=== PATIENT | female | born 1965 | race Caucasian/White ===

== ENCOUNTER 2018-04-10 13:55 | Inpatient (IN) | payer MEDICAID, OTHER ==
[~2018-04-10] VITALS: Ht 157.5 cm; Wt 135.4 kg
[~2018-04-10 13:55] MED LIST: ASPI-825 PO; BENA10TA12 PO; CANA100T PO; DULO60CA44 PO; GLIP10TA9 PO; INSLAN SQ; LOSA50TA64 PO; METF1000 PO; MULT-1239 PO; NYST30CR9 TP; OLAN10TA22 PO
[2018-04-10 16:16] LABS: RED BLOOD CELL COUNT(AUTO) 5.24 MIL/uL (4.00-5.20)
[2018-04-10 16:17] LABS: BASOPHILS % (AUTO) 0.3 % (0.0-2.0); EOSINOPHILS % (AUTO) 2.2 % (1.0-6.0); HEMATOCRIT 42.9 % (36-46); HEMOGLOBIN 14.3 g/dL (12.0-16.0); LYMPHOCYTES # (AUTO) 3.4 K/uL (1.0-4.8); LYMPHOCYTES % (AUTO) 36.7 % (22.0-44.0); MEAN CORPUSCULAR HEMOGLOBIN 27.3 pg (26.0-34.0); MEAN CORPUSCULAR HGB CONC 33.3 G/dL (31.0-37.0); MEAN CORPUSCULAR VOLUME 82 fL (80-100); MONOCYTES # (AUTO) 0.7 K/uL (0.1-1.0); MONOCYTES % (AUTO) 7.2 % (2.0-9.0); NEUTROPHILS # (AUTO) 4.9 K/uL (1.8-7.7); NEUTROPHILS % (AUTO) 53.6 % (40.0-70.0); PLATELET COUNT (AUTO) 280 K/uL (150-450); RED CELL DISTRIBUTION WIDTH 13.8 % (11.5-14.5)
[2018-04-10 16:26] LABS: ANION GAP 10 mmol/L (8-16); CALCIUM, TOTAL 9.3 mg/dL (8.8-10.5); CARBON DIOXIDE 26 mmol/L (22-29); CHLORIDE 104 mmol/L (98-107); CREATININE 0.86 mg/dL (0.60-1.30); GLOMERULAR FILTR. RATE CALC > 60 mL/min (>60); GLUCOSE,RANDOM 146 mg/dL (70-110); POTASSIUM 4.2 mmol/L (3.5-5.1); SODIUM SERUM 140 mmol/L (136-145); UREA NITROGEN, BLOOD 15 mg/dL (7-18)
[2018-04-10 16:40] LABS: ALANINE AMINOTRANSFERASE 25 U/L (12-78); ALBUMIN 3.3 g/dL (3.4-5.0); ALKALINE PHOSPHATASE 81 U/L (46-116); ASPARTATE AMINOTRANSFERASE 15 U/L (15-37); BILIRUBIN,TOTAL 0.3 mg/dL (0.1-1.0); THYROID STIMULATING HORMONE 1.63 uIU/mL (0.36-3.74); TOTAL PROTEIN, SERUM 7.3 g/dL (6.4-8.2)
[2018-04-10 17:02] LABS: APPEARANCE,URINE CLEAR (CLEAR); BILIRUBIN,URINE NEGATIVE (NEGATIVE); GLUCOSE, URINE (UA) >=1000 mg/dL (NEGATIVE); KETONES,URINE NEGATIVE (NEGATIVE); LEUKOCYTE ESTERASE ,URINE NEGATIVE (NEGATIVE); NITRATE,URINE NEGATIVE (NEGATIVE); OCCULT BLOOD,URINE NEGATIVE (NEGATIVE); PROTEIN,URINE NEGATIVE (NEGATIVE); UROBILINOGEN,URINE 0.2 mg/dL (<=1.0)
[2018-04-10 17:06] LABS: AMPHET/METH SCREEN,URINE NEGATIVE (NEGATIVE); BARBITURATE SCREEN, URINE NEGATIVE (NEGATIVE); BENZODIAZEPINES SCREEN,URINE NEGATIVE (NEGATIVE); CANNABINOID SCREEN,URINE NEGATIVE (NEGATIVE); COCAINE SCREEN,URINE NEGATIVE (NEGATIVE); METHADONE SCREEN, URINE NEGATIVE (NEGATIVE); OPIATE SCREEN,URINE NEGATIVE (NEGATIVE); PHENCYCLIDINE SCREEN,URINE NEGATIVE (NEGATIVE)
[2018-04-10 17:16] LABS: BACTERIA,URINE None Seen /HPF (None Seen); RBC,URINE None Seen /HPF (0-2); SQUAMOUS EPITHELIAL CELL,UR Few /LPF (None Seen); WBC,URINE None Seen /HPF (0-5)
[2018-04-10] MEDS ORDERED: MAG HYDROX/AL HYDROX/SIMETH ES 30 ML SUSPENSION UDCUP PO PRN (18:45)
[2018-04-10] MEDS ORDERED: PROMETHAZINE HCL 25 MG TABLET PO PRN (18:45)
[2018-04-10] MEDS ORDERED: HydrOXYzine PAMOATE 50 MG CAPSULE PO PRN (18:45)
[2018-04-10] MEDS ORDERED: MAGNESIUM HYDROXIDE SUSPENSION 30 ML UDCUP PO PRN (18:45)
[2018-04-10] MEDS ORDERED: ZOLPIDEM TARTRATE 10 MG TABLET PO PRN (18:45)
[2018-04-10] MEDS ORDERED: LOPERAMIDE HCL 2 MG CAPSULE PO PRN (18:45)
[2018-04-10] MEDS ORDERED: GuaiFENesin/D-METHORPHAN [SUGAR-FREE] 200-20MG/10 ML SYRUP UDCUP PO PRN (18:45)
[2018-04-10] MEDS: OLANZapine 5 MG RAPDIS TABLET PO SCH (20:16)
[2018-04-10] MEDS: THIAMINE HCL 100 MG TABLET PO SCH (20:16)
[2018-04-10] MEDS: ACETAMINOPHEN 325 MG TABLET PO PRN (21:24)
[2018-04-11 01:33] VITALS: BP 131/68
[2018-04-11 02:15] VITALS: BP 121/60
[2018-04-11 04:33] LABS: BASOPHILS % (AUTO) 0.4 % (0.0-2.0); EOSINOPHILS % (AUTO) 2.5 % (1.0-6.0); HEMATOCRIT 41.3 % (36-46); HEMOGLOBIN 13.5 g/dL (12.0-16.0); LYMPHOCYTES # (AUTO) 3.4 K/uL (1.0-4.8); LYMPHOCYTES % (AUTO) 41.1 % (22.0-44.0); MEAN CORPUSCULAR HEMOGLOBIN 27.2 pg (26.0-34.0); MEAN CORPUSCULAR HGB CONC 32.6 G/dL (31.0-37.0); MEAN CORPUSCULAR VOLUME 83 fL (80-100); MONOCYTES # (AUTO) 0.8 K/uL (0.1-1.0); MONOCYTES % (AUTO) 9.9 % (2.0-9.0); NEUTROPHILS # (AUTO) 3.9 K/uL (1.8-7.7); NEUTROPHILS % (AUTO) 46.1 % (40.0-70.0); PLATELET COUNT (AUTO) 245 K/uL (150-450); RED BLOOD CELL COUNT(AUTO) 4.95 MIL/uL (4.00-5.20); RED CELL DISTRIBUTION WIDTH 13.4 % (11.5-14.5)
[2018-04-11 04:42] LABS: HEMOGLOBIN A1C 8.1 % (4.5-6.2)
[2018-04-11 05:05] LABS: ALANINE AMINOTRANSFERASE 24 U/L (12-78); ALKALINE PHOSPHATASE 75 U/L (46-116); ANION GAP 6 mmol/L (8-16); ASPARTATE AMINOTRANSFERASE 16 U/L (15-37); BILIRUBIN,TOTAL 0.3 mg/dL (0.1-1.0); CALCIUM, TOTAL 8.9 mg/dL (8.8-10.5); CARBON DIOXIDE 29 mmol/L (22-29); CHLORIDE 106 mmol/L (98-107); CHOL/HDL RATIO 3.2 (3.9-5.7); CHOLESTEROL 135 mg/dL (131-200); CREATININE 0.85 mg/dL (0.60-1.30); GLOMERULAR FILTR. RATE CALC > 60 mL/min (>60); GLUCOSE,RANDOM 136 mg/dL (70-110); HDL CHOLESTEROL 42 mg/dL (40-60); LDL CHOL (CALC.) 55 mg/dL (0-130); POTASSIUM 3.8 mmol/L (3.5-5.1); SODIUM SERUM 141 mmol/L (136-145); TOTAL PROTEIN, SERUM 6.6 g/dL (6.4-8.2); TRIGLYCERIDES 190 mg/dL (15-150); UREA NITROGEN, BLOOD 17 mg/dL (7-18)
[2018-04-11 07:56] VITALS: BP 132/60
[2018-04-11] MEDS: FOLIC ACID 1 MG TABLET PO SCH (08:36)
[2018-04-11] MEDS: DULoxetine HCL 60 MG CAPSULE PO SCH (08:36)
[2018-04-11] MEDS: MetFORMIN HCL 500 MG TABLET PO SCH ×2 (08:36→17:41)
[2018-04-11] MEDS: THIAMINE HCL 100 MG TABLET PO SCH ×2 (08:37→21:21)
[2018-04-11] MEDS: MULTIVITAMINS WITH MINERALS, THERAPEUTIC TABLET PO SCH (08:37)
[2018-04-11 09:22] VITALS: BP 132/60
[2018-04-11 14:00] LABS: GLUCOSE,POINT OF CARE 147 MG/DL (70-110)
[2018-04-11 14:01] LABS: GLUCOMETER DEV NAME(LOC) AHU.; GLUCOSE,POINT OF CARE 128 MG/DL (70-110)
[2018-04-11] MEDS ORDERED: DEXTROSE 50%-WATER 25 GM/50 ML SYRINGE IVP PRN (19:30)
[2018-04-11 20:08] VITALS: BP 121/59
[2018-04-11] MEDS: OLANZapine 5 MG RAPDIS TABLET PO SCH (21:21)
[2018-04-12] MEDS: INSULIN LISPRO 100 UNITS/ML SQ PRN ×2 (06:51→17:44)
[2018-04-12] MEDS: ASPIRIN 81 MG CHEWABLE TABLET PO SCH (08:01)
[2018-04-12] MEDS: MULTIVITAMINS WITH MINERALS, THERAPEUTIC TABLET PO SCH (08:01)
[2018-04-12] MEDS: MetFORMIN HCL 500 MG TABLET PO SCH ×2 (08:01→17:45)
[2018-04-12] MEDS: FOLIC ACID 1 MG TABLET PO SCH (08:01)
[2018-04-12] MEDS: DULoxetine HCL 60 MG CAPSULE PO SCH (08:01)
[2018-04-12] MEDS: OLANZapine 5 MG RAPDIS TABLET PO PRN (08:02)
[2018-04-12] MEDS: THIAMINE HCL 100 MG TABLET PO SCH (08:02)
[2018-04-12] MEDS: LORazepam 2 MG TABLET PO PRN (08:02)
[2018-04-12] MEDS: LISINOPRIL 10 MG TABLET PO SCH (08:02)
[2018-04-12 08:15] VITALS: BP 142/66
[2018-04-12 08:52] LABS: GLUCOMETER DEV NAME(LOC) AHU.; GLUCOSE,POINT OF CARE 181 MG/DL (70-110)
[2018-04-12 08:56] LABS: GLUCOSE,POINT OF CARE 183 MG/DL (70-110)
[2018-04-12 17:14] LABS: GLUCOMETER DEV NAME(LOC) 3EX.; GLUCOSE,POINT OF CARE 218 MG/DL (70-110)
[2018-04-12] MEDS: OLANZapine 5 MG RAPDIS TABLET PO SCH (20:46)
[2018-04-13 06:24] LABS: GLUCOMETER DEV NAME(LOC) 3EX.; GLUCOSE,POINT OF CARE 213 MG/DL (70-110)
[2018-04-13] MEDS: INSULIN LISPRO 100 UNITS/ML SQ PRN ×2 (06:49→17:25)
[2018-04-13] MEDS: MetFORMIN HCL 500 MG TABLET PO SCH ×2 (06:51→16:50)
[2018-04-13] MEDS: DULoxetine HCL 30 MG CAPSULE PO SCH (10:04)
[2018-04-13] MEDS: LISINOPRIL 10 MG TABLET PO SCH (10:05)
[2018-04-13] MEDS: ASPIRIN 81 MG CHEWABLE TABLET PO SCH (10:05)
[2018-04-13] MEDS: FOLIC ACID 1 MG TABLET PO SCH (10:05)
[2018-04-13] MEDS: THIAMINE HCL 100 MG TABLET PO SCH ×2 (10:06→16:50)
[2018-04-13] MEDS: MULTIVITAMINS WITH MINERALS, THERAPEUTIC TABLET PO SCH (10:06)
[2018-04-13 10:39] LABS: GLUCOSE,POINT OF CARE 145 MG/DL (70-110)
[2018-04-13 12:32] VITALS: BP 126/52
[2018-04-13] MEDS: LORazepam 2 MG TABLET PO PRN (16:48)
[2018-04-13 19:53] VITALS: BP 135/61
[2018-04-13] MEDS ORDERED: OLANZapine 10 MG RAPDIS TABLET PO SCH (21:00)
[2018-04-14] MEDS: MetFORMIN HCL 500 MG TABLET PO SCH ×2 (06:50→17:33)
[2018-04-14] MEDS: INSULIN LISPRO 100 UNITS/ML SQ PRN ×2 (06:54→17:34)
[2018-04-14] MEDS: MULTIVITAMINS WITH MINERALS, THERAPEUTIC TABLET PO SCH (08:29)
[2018-04-14] MEDS: FOLIC ACID 1 MG TABLET PO SCH (08:29)
[2018-04-14] MEDS: LISINOPRIL 10 MG TABLET PO SCH (08:29)
[2018-04-14] MEDS: DULoxetine HCL 30 MG CAPSULE PO SCH (08:29)
[2018-04-14 08:30] VITALS: BP 152/81
[2018-04-14] MEDS: ASPIRIN 81 MG CHEWABLE TABLET PO SCH (08:30)
[2018-04-14] MEDS: THIAMINE HCL 100 MG TABLET PO SCH ×2 (08:30→17:33)
[2018-04-14 10:48] LABS: GLUCOMETER DEV NAME(LOC) 3EX.; GLUCOSE,POINT OF CARE 185 MG/DL (70-110)
[2018-04-14 10:50] LABS: GLUCOMETER DEV NAME(LOC) 3EX.; GLUCOSE,POINT OF CARE 240 MG/DL (70-110)
[2018-04-14 17:01] VITALS: BP 125/77
[2018-04-14 17:37] LABS: GLUCOMETER DEV NAME(LOC) 3EX.; GLUCOSE,POINT OF CARE 258 MG/DL (70-110)
[2018-04-14] MEDS: TraZODone HCL 50 MG TABLET PO SCH (20:43)
[2018-04-15 05:24] LABS: GLUCOMETER DEV NAME(LOC) 3EX.; GLUCOSE,POINT OF CARE 242 MG/DL (70-110)
[2018-04-15] MEDS: MetFORMIN HCL 500 MG TABLET PO SCH ×2 (06:58→16:53)
[2018-04-15] MEDS: INSULIN LISPRO 100 UNITS/ML SQ PRN ×2 (07:04→17:05)
[2018-04-15 08:05] VITALS: BP 119/69
[2018-04-15] MEDS: THIAMINE HCL 100 MG TABLET PO SCH ×2 (09:13→16:53)
[2018-04-15] MEDS: LISINOPRIL 10 MG TABLET PO SCH (09:13)
[2018-04-15] MEDS: BuPROPion HCL 100 MG SR TABLET PO SCH (09:13)
[2018-04-15] MEDS: ARIPiprazole 15 MG TABLET PO SCH (09:13)
[2018-04-15] MEDS: MULTIVITAMINS WITH MINERALS, THERAPEUTIC TABLET PO SCH (09:14)
[2018-04-15] MEDS: ASPIRIN 81 MG CHEWABLE TABLET PO SCH (09:14)
[2018-04-15] MEDS: FOLIC ACID 1 MG TABLET PO SCH (09:14)
[2018-04-15 17:00] VITALS: BP 127/77
[2018-04-15 17:30] LABS: GLUCOMETER DEV NAME(LOC) 3EX.; GLUCOSE,POINT OF CARE 257 MG/DL (70-110)
[2018-04-15] MEDS: TraZODone HCL 50 MG TABLET PO SCH (20:20)
[2018-04-16 05:34] LABS: GLUCOMETER DEV NAME(LOC) 3EX.; GLUCOSE,POINT OF CARE 245 MG/DL (70-110)
[2018-04-16] MEDS: MetFORMIN HCL 500 MG TABLET PO SCH ×2 (06:39→17:03)
[2018-04-16] MEDS: INSULIN LISPRO 100 UNITS/ML SQ PRN ×2 (06:40→17:05)
[2018-04-16 08:22] VITALS: BP 137/69
[2018-04-16] MEDS: THIAMINE HCL 100 MG TABLET PO SCH ×2 (09:44→17:03)
[2018-04-16] MEDS: LISINOPRIL 10 MG TABLET PO SCH (09:44)
[2018-04-16] MEDS: MULTIVITAMINS WITH MINERALS, THERAPEUTIC TABLET PO SCH (09:44)
[2018-04-16] MEDS: FOLIC ACID 1 MG TABLET PO SCH (09:44)
[2018-04-16] MEDS: ASPIRIN 81 MG CHEWABLE TABLET PO SCH (09:44)
[2018-04-16] MEDS: BuPROPion HCL 100 MG SR TABLET PO SCH (09:44)
[2018-04-16] MEDS: ARIPiprazole 15 MG TABLET PO SCH (09:45)
[2018-04-16 17:00] VITALS: BP 122/71
[2018-04-16 17:08] LABS: GLUCOMETER DEV NAME(LOC) 3EX.; GLUCOSE,POINT OF CARE 287 MG/DL (70-110)
[2018-04-16] MEDS: TraZODone HCL 50 MG TABLET PO SCH (20:22)
[2018-04-16] MEDS: INSULIN GLARGINE,HUM.REC.ANLOG 100 UNITS/ML SQ SCH (20:27)
[2018-04-16 20:44] LABS: GLUCOMETER DEV NAME(LOC) 3EX.; GLUCOSE,POINT OF CARE 275 MG/DL (70-110)
[2018-04-17 05:55] LABS: GLUCOMETER DEV NAME(LOC) 3EX.; GLUCOSE,POINT OF CARE 203 MG/DL (70-110)
[2018-04-17] MEDS: MetFORMIN HCL 500 MG TABLET PO SCH ×2 (07:03→17:20)
[2018-04-17] MEDS: INSULIN LISPRO 100 UNITS/ML SQ PRN ×3 (07:05→17:23)
[2018-04-17] MEDS: ASPIRIN 81 MG CHEWABLE TABLET PO SCH (09:09)
[2018-04-17] MEDS: MULTIVITAMINS WITH MINERALS, THERAPEUTIC TABLET PO SCH (09:09)
[2018-04-17] MEDS: LISINOPRIL 10 MG TABLET PO SCH (09:09)
[2018-04-17] MEDS: THIAMINE HCL 100 MG TABLET PO SCH ×2 (09:09→17:20)
[2018-04-17] MEDS: FOLIC ACID 1 MG TABLET PO SCH (09:09)
[2018-04-17] MEDS: BuPROPion HCL 100 MG SR TABLET PO SCH ×2 (09:10→20:14)
[2018-04-17] MEDS: ARIPiprazole 15 MG TABLET PO SCH (09:10)
[2018-04-17 11:24] VITALS: BP 122/80
[2018-04-17 11:40] LABS: GLUCOMETER DEV NAME(LOC) 3EX.; GLUCOSE,POINT OF CARE 298 MG/DL (70-110)
[2018-04-17 17:10] LABS: GLUCOMETER DEV NAME(LOC) 3EX.; GLUCOSE,POINT OF CARE 252 MG/DL (70-110)
[2018-04-17 20:07] VITALS: BP 136/66
[2018-04-17] MEDS: TraZODone HCL 50 MG TABLET PO SCH (20:12)
[2018-04-17] MEDS: ACETAMINOPHEN 325 MG TABLET PO PRN (20:15)
[2018-04-17 20:24] LABS: GLUCOMETER DEV NAME(LOC) 3EX.; GLUCOSE,POINT OF CARE 312 MG/DL (70-110)
[2018-04-17] MEDS: INSULIN GLARGINE,HUM.REC.ANLOG 100 UNITS/ML SQ SCH (21:31)
[2018-04-18 06:04] LABS: GLUCOMETER DEV NAME(LOC) 3EX.; GLUCOSE,POINT OF CARE 270 MG/DL (70-110)
[2018-04-18] MEDS: MetFORMIN HCL 500 MG TABLET PO SCH ×2 (07:22→17:31)
[2018-04-18] MEDS: INSULIN LISPRO 100 UNITS/ML SQ PRN ×2 (07:23→17:29)
[2018-04-18 08:11] VITALS: BP 143/86
[2018-04-18] MEDS: ASPIRIN 81 MG CHEWABLE TABLET PO SCH (09:40)
[2018-04-18] MEDS: LISINOPRIL 10 MG TABLET PO SCH (09:40)
[2018-04-18] MEDS: FOLIC ACID 1 MG TABLET PO SCH (09:40)
[2018-04-18] MEDS: THIAMINE HCL 100 MG TABLET PO SCH ×2 (09:40→16:55)
[2018-04-18] MEDS: MULTIVITAMINS WITH MINERALS, THERAPEUTIC TABLET PO SCH (09:40)
[2018-04-18] MEDS: BuPROPion HCL 100 MG SR TABLET PO SCH ×2 (09:41→20:17)
[2018-04-18] MEDS: ARIPiprazole 15 MG TABLET PO SCH (09:41)
[2018-04-18 16:59] LABS: GLUCOMETER DEV NAME(LOC) 3EX.; GLUCOSE,POINT OF CARE 273 MG/DL (70-110)
[2018-04-18 19:17] VITALS: BP 142/70
[2018-04-18] MEDS: TraZODone HCL 50 MG TABLET PO SCH (20:18)
[2018-04-18] MEDS: OLANZapine 5 MG RAPDIS TABLET PO PRN (20:19)
[2018-04-18 20:37] LABS: GLUCOMETER DEV NAME(LOC) 3EX.; GLUCOSE,POINT OF CARE 328 MG/DL (70-110)
[2018-04-18] MEDS: INSULIN GLARGINE,HUM.REC.ANLOG 100 UNITS/ML SQ SCH (21:26)
[2018-04-19 05:39] LABS: GLUCOMETER DEV NAME(LOC) 3EX.; GLUCOSE,POINT OF CARE 257 MG/DL (70-110)
[2018-04-19] MEDS: MetFORMIN HCL 500 MG TABLET PO SCH ×2 (07:08→17:12)
[2018-04-19] MEDS: INSULIN LISPRO 100 UNITS/ML SQ PRN ×2 (07:13→17:20)
[2018-04-19 08:15] VITALS: BP 150/78
[2018-04-19] MEDS: ARIPiprazole 10 MG TABLET PO SCH (08:27)
[2018-04-19] MEDS: THIAMINE HCL 100 MG TABLET PO SCH ×2 (08:28→16:37)
[2018-04-19] MEDS: FOLIC ACID 1 MG TABLET PO SCH (08:28)
[2018-04-19] MEDS: ASPIRIN 81 MG CHEWABLE TABLET PO SCH (08:28)
[2018-04-19] MEDS: BuPROPion HCL 100 MG SR TABLET PO SCH (08:28)
[2018-04-19] MEDS: MULTIVITAMINS WITH MINERALS, THERAPEUTIC TABLET PO SCH (08:28)
[2018-04-19] MEDS: LISINOPRIL 10 MG TABLET PO SCH (08:28)
[2018-04-19] MEDS ORDERED: TRAZ-219 PO (12:07)
[2018-04-19] MEDS ORDERED: ARIP10TA8 PO (12:07)
[2018-04-19] MEDS ORDERED: BUPR-47 PO (12:07)
[2018-04-19 16:49] LABS: GLUCOMETER DEV NAME(LOC) 3EX.; GLUCOSE,POINT OF CARE 277 MG/DL (70-110)
[2018-04-19 17:15] VITALS: BP 144/79
[2018-04-19] MEDS ORDERED: TraZODone HCL 100 MG TABLET PO SCH (21:00)
[2018-04-19] MEDS: INSULIN GLARGINE,HUM.REC.ANLOG 100 UNITS/ML SQ SCH (21:03)
[2018-04-19 21:09] LABS: GLUCOMETER DEV NAME(LOC) 3EX.; GLUCOSE,POINT OF CARE 280 MG/DL (70-110)
[2018-04-19 21:10] VITALS: BP 124/68
[2018-04-19] MEDS: ACETAMINOPHEN 325 MG TABLET PO PRN (21:10)
[2018-04-19 22:10] VITALS: BP 109/49
[2018-04-20 05:30] LABS: GLUCOMETER DEV NAME(LOC) 3EX.; GLUCOSE,POINT OF CARE 255 MG/DL (70-110)
[2018-04-20] MEDS: MetFORMIN HCL 500 MG TABLET PO SCH (07:00)
[2018-04-20] MEDS: INSULIN LISPRO 100 UNITS/ML SQ PRN (07:04)
[2018-04-20] MEDS ORDERED: BuPROPion HCL XL 150 MG ER TABLET PO SCH (09:00)
[2018-04-20] MEDS ORDERED: LISI-661 PO (09:00)
[2018-04-20] MEDS: LISINOPRIL 10 MG TABLET PO SCH (09:04)
[2018-04-20] MEDS: ARIPiprazole 10 MG TABLET PO SCH (09:04)
[2018-04-20] MEDS: FOLIC ACID 1 MG TABLET PO SCH (09:04)
[2018-04-20] MEDS: ASPIRIN 81 MG CHEWABLE TABLET PO SCH (09:06)
[2018-04-20] MEDS: MULTIVITAMINS WITH MINERALS, THERAPEUTIC TABLET PO SCH (09:07)
[2018-04-20 14:26] VITALS: BP 149/71
[2018-04-20 16:53] LABS: GLUCOMETER DEV NAME(LOC) 3EX.; GLUCOSE,POINT OF CARE 228 MG/DL (70-110)
== END 2018-04-20 17:00 | disposition home or self-care (01) | DRG 750 ==
LOC: EMS 13:56 → AHU 04-11 01:00 → 3EI 04-12 16:43
PROVIDERS: ADMIT Psychiatry & Neurology Psychiatry; ATTEND Psychiatry & Neurology Psychiatry
DX: F25.9 Schizoaffective disorder, unspecified (principal); E66.01 Morbid (severe) obesity due to excess calories; R45.851 Suicidal ideations; E11.9 Type 2 diabetes mellitus without complications; G47.30 Sleep apnea, unspecified; I10 Essential (primary) hypertension; I25.10 Atherosclerotic heart disease of native coronary artery without angina pectoris; Z91.19 Patient's noncompliance with other medical treatment and regimen; Z91.5 Personal history of self-harm; Z68.43 Body mass index [BMI] 50.0-59.9, adult
CPT/HCPCS: 83036; 84443; 87081; G0480; J1815